=== PATIENT | female | born 1990 | race African-American/Black ===

== ENCOUNTER 2023-12-22 13:31 | Emergency (ER) | payer BC, OTHER ==
[~2023-12-22] VITALS: Ht 154.9 cm; Wt 120.5 kg
[~2023-12-22 13:31] MED LIST: NOCURR
[2023-12-22 13:41] VITALS: BP 118/78; PULSE 103; RESP 18; TEMP 98.3
[2023-12-22 14:27] LABS: APPEARANCE,URINE HAZY (CLEAR); BILIRUBIN,URINE NEGATIVE (NEGATIVE); COLOR,URINE YELLOW (YELLOW); GLUCOSE, URINE (UA) NEGATIVE (NEGATIVE); KETONES,URINE NEGATIVE (NEGATIVE); LEUKOCYTE ESTERASE ,URINE SMALL (NEGATIVE); NITRATE,URINE NEGATIVE (NEGATIVE); OCCULT BLOOD,URINE LARGE (NEGATIVE); PROTEIN,URINE 100-200,SEE CONFIRM mg/dL (NEGATIVE); SPECIFIC GRAVITIY, URINE 1.036 (1.003-1.030); UROBILINOGEN,URINE <=1.0 mg/dL (<=1.0)
[2023-12-22 14:30] LABS: HCG,QUAL URINE NEGATIVE (NEGATIVE)
[2023-12-22 14:42] LABS: BACTERIA,URINE Few /HPF (None Seen); RBC,URINE 51-100 /HPF (0-2); SQUAMOUS EPITHELIAL CELL,UR Few /LPF (None Seen); SULFOSALICYLIC ACID,URINE 1+ (Negative)
[2023-12-22] MEDS ORDERED: METR500 PO (19:40)
== END 2023-12-22 20:33 | disposition home or self-care (01) ==
LOC: EMS 13:31
DX: N76.0 Acute vaginitis (principal); E03.9 Hypothyroidism, unspecified; F12.90 Cannabis use, unspecified, uncomplicated
CPT/HCPCS: 81001; 81002; 84703; 87210; 87491; 87591; 99283